=== PATIENT | female | born 1960 | race Caucasian/White ===

== ENCOUNTER → 2019-04-22 13:27 | Outpatient (CLI) | payer OTHER, MEDICAID, SELFPAY ==
--- NOTE | 2019-04-22 13:30 | DI.RAD.S_ITS ---
PROCEDURE: XR KNEE RT 1TO2V INDICATIONS: R knee joint laxity TECHNIQUE: 2 views of the knee were acquired. COMPARISON: None. FINDINGS: Bones: No fractures or dislocations. No suspicious bony lesions. No significant degenerative changes are appreciated. The bone mineralization appears decreased. Soft tissues: No joint effusion. No suspicious soft tissue calcifications. IMPRESSION: No acute osseous abnormalities of the right knee. Dictated by: Nghia Brown M.D. on 04/22/2019 at 14:10 Approved by: Nghia Brown M.D. on 04/22/2019 at 14:10
== END ==
PROVIDERS: PCP Family Medicine; Visit Provider Family Medicine
DX: M23.8X1 Other internal derangements of right knee (principal); G35 Multiple sclerosis; R53.1 Weakness
CPT/HCPCS: 73560

== ENCOUNTER → 2019-07-01 12:43 | Outpatient (CLI) | payer OTHER, MEDICAID, SELFPAY ==
[2019-07-01 13:22] LABS: Add Manual Diff / Slide Review NO; Basophils Absolute Auto 0 /uL (0-100); Basophils Percent Auto 0.8 % (0-2); Eosinophils Absolute Auto 100 /uL (0-450); Eosinophils Percent Auto 2.3 % (2-4); Hematocrit 41.4 % (36-46); Hemoglobin 14.2 g/dL (12.0-16.0); Lymphocytes Absolute Auto 900 /uL (1100-4500); Lymphocytes Percent Auto 18.8 % (25-40); Mean Corpuscular HGB Conc 34.2 % (30-36); Mean Corpuscular Hemoglobin 29.6 PG (26-34); Mean Corpuscular Volume 86.6 fL (80-100); Monocytes Absolute Auto 200 /uL (0-900); Monocytes Percent Auto 4.2 % (3-14); Neutrophils Absolute Auto 3700 /uL (1500-7000); Neutrophils Percent Auto 73.9 % (50-75); Platelet Count 278 X10^3/uL (150-400); Red Blood Cell Count 4.79 X10^6/uL (4.0-5.2)
[2019-07-01 13:48] LABS: Alanine Aminotransferase 25 IU/L (<35); Albumin 4.5 g/dL (3.5-5.0); Albumin Globulin Ratio 1.4 (1.0-2.8); Alkaline Phosphatase 64 U/L (38-126); Aspartate Aminotransferase 26 IU/L (14-36); Bilirubin Total 0.5 mg/dL (0.2-1.3); Blood Urea Nitrogen 9 mg/dL (7-17); Calcium 10.1 mg/dL (8.4-10.2); Carbon Dioxide 29 mmol/L (22-32); Chloride 100 mmol/L (98-107); Cholesterol 236 mg/dL (140-199); Estimated Glomerular Filt Rate > 60.0 mL/min (>60); Globulin 3.3 g/dL (1.7-4.1); Glucose 89 mg/dL (80-110); HDL Cholesterol 48 mg/dL (40-60); HEMOLYSIS < 15 (0-50); LDL Cholesterol Calculated 164 mg/dL (<100); Potassium 4.1 mmol/L (3.4-5.1); Sodium 140 mmol/L (137-145); Total Protein 7.8 g/dL (6.3-8.2); Triglycerides 119 mg/dL (35-150)
[2019-07-01 14:19] LABS: Thyroid Stimulating Hormone 2.08 uIU/mL (0.47-4.68)
[2019-07-01 15:24] LABS: Vitamin D 25 Hydroxy (D3) 77.3 ng/mL (30.0-100.0)
== END ==
PROVIDERS: PCP Family Medicine; Visit Provider Family Medicine
DX: G35 Multiple sclerosis (principal); Z13.220 Encounter for screening for lipoid disorders; Z13.29 Encounter for screening for other suspected endocrine disorder
CPT/HCPCS: 36415; 80053; 80061; 82306; 84443; 85025

== ENCOUNTER 2025-03-15 12:39 | Inpatient (IN) | payer MEDICARE, MEDICAID, SELFPAY ==
[2025-03-15] VITALS (15 sets, daily range): BP systolic 111–153; BP diastolic 57–76; PULSE 101–117; RESP 14–22; TEMP 36.6–37.1; O2SAT 95–100; BMI 20.7
--- NOTE | 2025-03-15 14:12 | DI.RAD.S_ITS ---
PROCEDURE: XR CHEST 1V INDICATIONS: suspected sepsis TECHNIQUE: One view of the chest was acquired. COMPARISON: None. FINDINGS: Surgical changes and devices: None. Lungs and pleura: Lungs are clear. No pleural effusions or pneumothorax. Mediastinum: Mediastinal contours appear normal. Heart size is normal. Bones and chest wall: No suspicious bony lesions. Overlying soft tissues appear unremarkable. IMPRESSION: No acute pulmonary process. Dictated by: Rajwinder Quiroz M.D. on 03/15/2025 at 15:41 Approved by: Rajwinder Quiroz M.D. on 03/15/2025 at 15:41
--- NOTE | 2025-03-15 14:20 | EKG_ITS ---
[place] [id number] [place] [id number] Test Date: 2025-03-15 Pat Name: Palmira Burch Department: [facility] Room: Gender: Female Manager Behavior: : 1960 Requested By: Order Number: [id number] Reading MD: Dontrell Gallardo Measurements Intervals [place] Rate: 110 P: 80 MO: 156 QRS: 5 QRSD: 76 T: 68 QT: 338 QTc: 457 Interpretive Statements Sinus tachycardia with premature supraventricular complexes Low voltage QRS Cannot rule out Anterior infarct , age undetermined Electronically Signed On 03-15-2025 17:12:23 PDT by Dontrell Gallardo
[2025-03-15 14:26] LABS: Bilirubin Urine UA 1+ (NEGATIVE); Color Urine UA YELLOW; Glucose Urine UA NEGATIVE (Negative); Ketones Urine UA TRACE (NEGATIVE); Leukocyte Esterase Urine UA 3+ (NEGATIVE); Nitrite Urine UA NEGATIVE (Negative); Occult Blood Urine UA 2+ (Negative); Protein Urine UA 2+ (Negative); Specific Gravity Urine UA 1.015 (1.000-1.035); Urobilinogen Urine UA 1.0 E.U./dL (0.2); pH Urine UA 8.0 (4.5-8.0)
[2025-03-15 14:27] LABS: Appearance Urine UA Cloudy
[2025-03-15 14:33] LABS: Culture Indicated Urine Specimen Cultured
[2025-03-15] MEDS: SODIUM CHLORIDE 0.9% 1,000 ML 1000 ML IV ×2 (14:36→15:49)
[2025-03-15 14:37] LABS: Ictotest Urine Negative (Negative)
[2025-03-15 14:42] LABS: Add Manual Diff / Slide Review NO; Hematocrit 28.0 % (36-46); Hemoglobin 9.2 g/dL (12.0-16.0); Lymphocytes Absolute Auto 700 /uL (1100-4500); Mean Corpuscular HGB Conc 33.0 % (30-36); Mean Corpuscular Hemoglobin 28.0 PG (26-34); Mean Corpuscular Volume 84.9 fL (80-100); Platelet Count 554 X10^3/uL (150-400)
[2025-03-15 14:49] LABS: INR 1.3 (0.9-1.3); Prothrombin Time 14.2 SECONDS (9.4-12.5)
[2025-03-15 14:50] LABS: Lactate (Lactic Acid) 1.3 mmol/L (0.7-2.1)
[2025-03-15 14:52] LABS: PTT Partial Thromboplastin Tim 28 SECONDS (25.1-36.5)
[2025-03-15 15:11] LABS: Alanine Aminotransferase 48 IU/L (<35); Albumin 3.1 g/dL (3.5-5.0); Albumin Globulin Ratio 0.8 (1.0-2.8); Alkaline Phosphatase 123 U/L (38-126); Blood Urea Nitrogen 22 mg/dL (7-17); Calcium 9.1 mg/dL (8.4-10.2); Carbon Dioxide 20 mmol/L (22-32); Chloride 97 mmol/L (98-107); Estimated Glomerular Filt Rate > 60 mL/min (>60); Globulin 4.0 g/dL (1.7-4.1); Glucose 109 mg/dL (70-99); HEMOLYSIS < 15 (0-50); Lipase 131 U/L (23-300); Potassium 4.8 mmol/L (3.4-5.1); Sodium 129 mmol/L (137-145); Total Protein 7.1 g/dL (6.3-8.2)
[2025-03-15 15:27] LABS: Procalcitonin 0.213 ng/mL (<0.5)
--- NOTE | 2025-03-15 16:33 | ED.ABDPAIN ---
HPI - Abdominal Pain General Chief Complaint: Urogenital-Female Stated Complaint: feels sick, sludgy urine Time Seen by Provider: 03/15/25 12:42 Source: patient Mode of arrival: EMS History of Present Illness HPI narrative: Patient 64-year-old female history of MS not followed by Neurology not on any medication is fully disabled lives alone presenting today with increasing weakness. She is here with good friend and caregiver at bedside. They report they had upper respiratory viral-like illness about 3 weeks ago. At that time she lost strength in the right side of her body arm and leg. They proceeded to get more devices at home including lift chair transfer chair. Started noticing foul-smelling urine yesterday and much worse today. No pain. She has a health inspector with social work as an outpatient working on getting 24 hour care but not yet established. Weakness on right side is quite profound she used to be able to walk by a walker 3 weeks ago but not able to do so all now. Related Data Home Medications ?Medication ?Instructions ?Recorded ?Confirmed ascorbic acid (vitamin C) 500 mg mg PO 11/29/18 12/13/24 capsule ginkgo biloba 40 mg tablet 40 mg PO DAILY 11/29/18 12/13/24 vitamin B complex (B 1 tab PO DAILY 11/29/18 12/13/24 Complex-Vitamin B12 tablet) mecobalamin (vitamin B12) 1,000 1,000 mcg sublingual DAILY 12/13/24 12/13/24 mcg disintegrating tablet,sublingual Previous Rx's ?Medication ?Instructions ?Recorded Incontinence Supplies #1 ea 02/17/22 transfer disk #1 ea 05/14/22 transfer disk #1 ea 05/26/22 disabled parking #1 ea 12/29/22 Shower chair #1 ea 03/24/23 NANCY Donahue Sit to Stand #1 ea 12/19/24 patient transfer Aid Allergies Allergy/AdvReac Type Severity Reaction Status Date / Time No Known Allergies Allergy Uncoded 03/15/25 12:52 Patient History Medical History Dyslipidemia Social History Smoking Status: Unknown if ever smoked alcohol intake: never Smoking Status: Unknown if ever smoked Exam Initial Vital Signs Initial Vital Signs: Vital Signs Temperature 98.7 F 03/15/25 12:45 Pulse Rate 117 H 03/15/25 12:45 Respiratory Rate 14 03/15/25 12:45 Blood Pressure 124/63 03/15/25 12:45 Pulse Oximetry 97 03/15/25 12:45 Oxygen Delivery Method Room Air 03/15/25 12:45 GENERAL: Alert pleasant 64-year-old and in no acute distress. HEENT: Head atraumatic,EOMI, pupils reactive, face symmetric, dry mucous membranes CARDIOVASCULAR: Regular rate and rhythm without murmurs, rubs or gallops. RESPIRATORY: Breath sounds equal bilaterally, no wheezes rales or rhonchi. ABDOMEN: Soft, nontender. Normoactive bowel sounds all 4 quadrants. No guarding or rebound. EXTREMITIES: Normal range of motion, no clubbing or edema. Neurovascularly intact NEUROLOGICAL: Alert and oriented x4. No facial droop significant weakness on right arm unable to lift against gravity able to move toes on the left side but also pretty profoundly weak SKIN: Warm, dry, no laceration, no petechiae, no rashes or lesions. Scores NIH Stroke Scale Level of Conciousness: Alert, keenly responsive Ask month/age: Answers both questions correctly. Open/close eyes, close hand: Performs both tasks correctly Best gaze horizontal: Normal Visual lucio: No visual loss Facial palsy: Normal symetrical movement Left arm drift: Some effort against gravity, cannot maintain, drifts down to bed Right arm drift: No effort against gravity Left leg drift: Some effort against gravity, cannot maintain, drifts down to bed Right leg drift: No movement Limb ataxia: Absent Sensory on face/arms/legs: Normal, no sensory loss Best language: No aphasia, normal Dysarthria: Normal Extinction or inattention: No abnormality Total NIH Stroke scale score: 11 Course Orders Ordered: ED Orders 03/15/25 12:30 Comprehensive Metabolic Panel Stat Lipase Stat PTT Partial Thromboplastin Vikash Stat Procalcitonin Stat Prothrombin Time INR Stat 03/15/25 14:12 XR chest 1V Stat EKG-12 Lead Stat RT Consult Eval and Treat NOW 03/15/25 14:17 Ictotest Urine Stat Urinalysis and Microscopic Stat Urine Culture Stat 03/15/25 14:25 Blood Culture Stat Complete Blood Count AUTO DIFF Stat Lactate (Lactic Acid) Stat 03/15/25 16:56 CT head/brain wo con Stat 03/15/25 17:01 CT angio head and neck Stat Ondansetron HCl (Ondansetron 4 Mg/2 Ml Inj) 4 mg IV NOW PRN PRN Reason: Nausea And Vomiting Ondansetron HCl (Ondansetron 4 Mg Odt) 4 mg PO NOW PRN PRN Reason: Nausea And Vomiting Discontinued Medications Sodium Chloride (Normal Saline 0.9%) 1,000 mls @ 1,000 mls/hr IV BOLUS ONE Stop: 03/15/25 15:11 Last Infusion: 03/15/25 15:38 Dose: Infused Documented By: Admin: 03/15/25 14:36 Dose: 1,000 mls/hr Documented By: CHARANJIT Sodium Chloride (Normal Saline 0.9%) 1,000 mls @ 1,000 mls/hr IV BOLUS ONE Stop: 03/15/25 15:58 Last Infusion: 03/15/25 17:15 Dose: Infused Documented By: Admin: 03/15/25 15:49 Dose: 1,000 mls/hr Documented By: CHARANJIT Ceftriaxone Sodium 1,000 mg/ (Sodium Chloride) 100 mls @ 200 mls/hr IV NOW ONE Stop: 03/15/25 15:00 Last Infusion: 03/15/25 15:49 Dose: Infused Documented By: Admin: 03/15/25 15:11 Dose: 200 mls/hr Documented By: CHARANJIT Vital Signs Vital signs: Vital Signs - 8 hr 03/15/25 12:45 03/15/25 13:22 03/15/25 13:23 Temperature 98.7 F Pulse Rate 117 H 114 H Respiratory Rate 14 Blood Pressure 124/63 119/59 L Pulse Oximetry 97 98 Oxygen Delivery Method Room Air 03/15/25 13:23 03/15/25 13:30 03/15/25 13:30 Temperature Pulse Rate 114 H 111 H Respiratory Rate 22 Blood Pressure 120/57 L Pulse Oximetry 98 97 Oxygen Delivery Method 03/15/25 14:00 03/15/25 14:00 03/15/25 14:30 Temperature Pulse Rate 112 H 109 H Respiratory Rate Blood Pressure 127/76 Pulse Oximetry 98 97 Oxygen Delivery Method 03/15/25 14:31 03/15/25 14:31 03/15/25 15:00 Temperature Pulse Rate 112 H Respiratory Rate 20 Blood Pressure 153/65 H 133/60 Pulse Oximetry 96 Oxygen Delivery Method 03/15/25 15:00 03/15/25 15:30 03/15/25 15:30 Temperature Pulse Rate 101 H 101 H Respiratory Rate Blood Pressure 123/60 Pulse Oximetry 100 100 Oxygen Delivery Method Room Air 03/15/25 16:00 03/15/25 16:00 03/15/25 16:30 Temperature Pulse Rate 104 H Respiratory Rate Blood Pressure 130/60 120/59 L Pulse Oximetry 98 Oxygen Delivery Method 03/15/25 16:30 03/15/25 17:00 03/15/25 17:00 Temperature Pulse Rate 103 H 104 H Respiratory Rate 20 18 Blood Pressure 111/62 Pulse Oximetry 95 98 Oxygen Delivery Method Room Air MDM - Abdominal Pain Lab Data 03/15/25 14:25 03/15/25 12:30 Labs: Lab Results 03/15/25 03/15/25 03/15/25 Range/Units 12:30 14:17 14:25 WBC 13.5 H (4.5-11.0) X10^3/uL RBC 3.30 L (4.0-5.2) X10^6/uL Hgb 9.2 L (12.0-16.0) g/dL Hct 28.0 L (36-46) % MCV 84.9 (80-100) fL MCH 28.0 (26-34) PG MCHC 33.0 (30-36) % RDW 14.1 (11.6-14.8) % Plt Count 554 H (150-400) X10^3/uL Neut % (Auto) 88.5 H (50-75) % Lymph % (Auto) 4.9 L (25-40) % [place] % (Auto) 6.2 (3-14) % Eos % (Auto) 0.2 L (2-4) % Baso % (Auto) 0.2 (0-2) % Neut # (Auto) 68462 H (7392-1715) /uL Lymph # (Auto) 700 L (2754-8405) /uL [place] # (Auto) 800 (0-900) /uL Eos # (Auto) 0 (0-450) /uL Baso # (Auto) 0 (0-100) /uL PT 14.2 H (9.4-12.5) SECONDS INR 1.3 (0.9-1.3) APTT 28 (25.1-36.5) SECONDS Sodium 129 L (137-145) mmol/L Potassium 4.8 (3.4-5.1) mmol/L Chloride 97 L (98-107) mmol/L Carbon Dioxide 20 L (22-32) mmol/L BUN 22 H (7-17) mg/dL Creatinine 0.45 L (0.52-1.04) mg/dL Estimated GFR > 60 (>60) mL/min BUN/Creatinine Ratio 48.9 H (6-22) Glucose 109 H (70-99) mg/dL Lactate 1.3 (0.7-2.1) mmol/L Calcium 9.1 (8.4-10.2) mg/dL Total Bilirubin 1.0 (0.2-1.3) mg/dL AST 59 H (14-36) IU/L ALT 48 H (<35) IU/L Alkaline Phosphatase 123 (38-126) U/L Total Protein 7.1 (6.3-8.2) g/dL Albumin 3.1 L (3.5-5.0) g/dL Globulin 4.0 (1.7-4.1) g/dL Albumin/Globulin Ratio 0.8 L (1.0-2.8) Lipase 131 (23-300) U/L Procalcitonin 0.213 (<0.5) ng/mL Urine Color Yellow Urine Appearance Cloudy Urine pH 8.0 (4.5-8.0) Ur Specific [place] 1.015 (1.000-1.035) Urine Protein 2+ H (Negative) Urine Glucose (UA) Negative (Negative) g/dL Urine Ketones Trace H (NEGATIVE) Urine Occult Blood 2+ H (Negative) Urine Nitrate Negative (Negative) Urine Bilirubin 1+ H (NEGATIVE) Ur Bilirubin Confirm Negative (Negative) Urine Urobilinogen 1.0 (0.2) E.U./dL Ur Leukocyte Esterase 3+ H (NEGATIVE) Urine RBC 1-5/hpf (0-5/HPF) Urine WBC 10-30/hpf H (0-5/HPF) Ur Squamous Epith Cells 1-5 /hpf (0-5/HPF) Urine Bacteria Many (>30) H (None) Ur Culture Indicated? Specimen cultured Vol Urine Centrifuged 10ml (spun) Imaging Data Chest x-ray: Radiologist's Impression: PROCEDURE: XR CHEST 1V INDICATIONS: suspected sepsis TECHNIQUE: One view of the chest was acquired. COMPARISON: None. FINDINGS: Surgical changes and devices: None. Lungs and pleura: Lungs are clear. No pleural effusions or pneumothorax. Mediastinum: Mediastinal contours appear normal. Heart size is normal. Bones and chest wall: No suspicious bony lesions. Overlying soft tissues appear unremarkable. IMPRESSION: No acute pulmonary process. Dictated by: Rajwinder Quiroz M.D. on 03/15/2025 at 15:41 CTA - brain/neck: Radiologist's Impression: PROCEDURE: CT ANGIO HEAD AND NECK INDICATIONS: right sided weakness x 3 weeks with MS TECHNIQUE: After the administration of intravenous contrast, 1 mm thick sections acquired from the aortic arch through the [employer] of [place]. 3-dimensional vdivfhq-fiasfxgrm-svbkwejqtm (MIP) and/or volume rendering reformats were acquired of the central intracranial vasculature and neck separately. For radiation dose reduction, the following was used: automated exposure control, adjustment of mA and/or kV according to patient size. COMPARISON: [facility], CT, CT HEAD/BRAIN WO CON, 03/15/2025, 17:07. FINDINGS: Image quality: Diagnostic. BRAIN: CSF spaces: Ventricles are normal in size and shape. Basal cisterns are patent. No extra-axial fluid collections. Brain: No midline shift. No intracranial masses. No suspicious enhancement. Wang-white matter interface appears intact. Skull and face: Calvarium and facial bones appear intact, without suspicious lesions. Orbits appear normal. Sinuses: Sinuses and mastoids are clear. HEAD CT ANGIOGRAPHY: Anterior circulation: There are atherosclerotic calcifications of the intracranial segments of the internal carotid arteries. Intracranial internal carotid arteries appear patent without high-grade stenosis. There is flow/opacification within the paired anterior cerebral arteries. There is opacification within the middle cerebral arteries. The anterior communicating artery is seen. No aneurysms are seen. No occlusion. Posterior circulation: Visualized portions of the vertebral arteries are patent and join to form a normal appearing basilar artery. No evidence for high-grade stenosis. No occlusions. There is opacification of the posterior cerebral arteries. No aneurysms are seen. NECK CT ANGIOGRAPHY: Carotid system: The great vessels demonstrate a conventional anatomy as they arise from the aortic arch. The origins of the common carotid arteries appear patent. The common carotid arteries appear patent throughout their visualized courses without high grade stenosis. The bifurcation regions are both patent without high grade stenosis. The internal carotid arteries demonstrate normal calibers and courses. Posterior circulation: The origins of the vertebral arteries both appear patent without hemodynamically significant stenosis. The more superior extracranial portions of both vertebral arteries also demonstrate normal courses and calibers. They join to form a normal appearing basilar artery. Soft tissues: Visualized neck soft tissues demonstrate no suspicious abnormalities. No adenopathy. Lung apices are clear. No apical pneumothorax. Bones: No suspicious bony lesions. Visualized cervical spine appears normally aligned. No acute compression fractures of the vertebral bodies. Multilevel cervical spondylosis. IMPRESSION: No significant intracranial arterial abnormality is seen. No significant abnormality is seen within the arteries of the neck. If there is persistent or high clinical suspicion for acute cerebrovascular ischemia/stroke, more sensitive evaluation with brain MRI can be considered. Any quantitative measurements of stenosis were performed using NASCET criteria. Dictated by: Bill York M.D. on 03/15/2025 at 18:02 ECG Data Attestation: I personally reviewed and interpreted this ECG as follows: Prior ECG tracings: not available for review Interpretation: Sinus rhythm rate 110 OK interval 156 QRS 76 QTC 457 artifact noted no significant ischemia appreciated MDM Narrative Medical decision making narrative: MDM CC: Weakness Complicating co-morbidities: MS not treated Data collected from: Patient caregiver at bedside Medical records reviewed: PCP note from December talking about increasing weakness need for more help and devices at home. Was not seen prior December 2022 Differential considered: Sepsis, MS flare, CVA Exam documented above, pertinent findings include: Alert very pleasant 64-year-old female has profound weakness greater on right than left but left is also quite weak. Lower extremity edema Lab Test results independently reviewed as above. Pertinent findings: CBC mild leukocytosis 13.5 anemia at 9.2 hematocrit 28 platelets 554 CMP mild hyponatremia sodium is 129 bicarb 20 BUN 22 creatinine 0.45 glucose 109 Lactate 1.3, procalcitonin 0.213 Blood cultures pending Independently reviewed EKG as above Sinus rhythm no ischemia Imaging studies independently reviewed: Chest x-ray no acute cardiopulmonary process Head CT no intracranial process, chronic disease CT angio no large vessel occlusion Consultations: Sami agrees to observation Treatments: 1 L IV fluids Rocephin Re-evaluations: Heart rate has improved Discussion: Patient 64-year-old female history of MS currently not treated presenting today with increasing weakness over the last 3 weeks and foul-smelling urine today. She is found to have leukocytosis with bacteria in her urine. She has had significant decline over the last 3 weeks in her mobility. Working with case work to get full-time care but not available yet. Trying to get more mobility devices holding as well. At this time I suspect that she does have a UTI with leukocytosis bacteria in her urine foul-smelling 'sludge urine with increasing weakness. No evidence of sepsis normal lactate blood cultures pending. She was tachycardic but heart rate improved with fluids. Discharge Plan Departure Patient Disposition: Admitted as Observation Clinical Impression: Acute UTI, Multiple sclerosis Admit Date/Time: 03/15/25 18:11 Admit Provider: Dontrell Gallardo
--- NOTE | 2025-03-15 16:56 | DI.CT.S_ITS ---
PROCEDURE: CT HEAD/BRAIN WO CON INDICATIONS: right sided weakness x 3 weeks MS TECHNIQUE: Noncontrast 4.5 mm thick angled axial sections acquired from the foramen magnum to the vertex, with coronal and sagittal reformats. For radiation dose reduction, the following was used: automated exposure control, adjustment of mA and/or kV according to patient size. COMPARISON: [facility], CT, HEAD WITHOUT CONTRAST, 09/30/2016, 11:31. FINDINGS: Image quality: Diagnostic. CSF spaces: Basal cisterns are patent. No extra-axial fluid collections. The ventricles are symmetric in size and shape. Brain: No intracranial bleeds or mass effect. There is cerebral volume loss, with resultant ventricular and sulcal prominence. There are periventricular and deep white matter chronic small vessel ischemic changes. There is intracranial internal carotid artery atherosclerosis. Skull and face: Calvarium and visualized facial bones appear intact, without suspicious lesions. Sinuses: Visualized sinuses and mastoids are clear. IMPRESSION: 1. CT head without acute intracranial abnormalities or acute calvarial fractures. 2. Age-related senescent changes and sequela of chronic small vessel ischemic disease. If there is persistent or high clinical suspicion for acute cerebrovascular ischemia/stroke, more sensitive evaluation with brain MRI can be considered. Dictated by: Bill York M.D. on 03/15/2025 at 17:32 Approved by: Bill York M.D. on 03/15/2025 at 17:34
--- NOTE | 2025-03-15 17:01 | DI.CT.S_ITS ---
PROCEDURE: CT ANGIO HEAD AND NECK INDICATIONS: right sided weakness x 3 weeks with MS TECHNIQUE: After the administration of intravenous contrast, 1 mm thick sections acquired from the aortic arch through the [place] of [place]. 3-dimensional ihtrjhb-ttsgegubc-hmzuhftdfu (MIP) and/or volume rendering reformats were acquired of the central intracranial vasculature and neck separately. For radiation dose reduction, the following was used: automated exposure control, adjustment of mA and/or kV according to patient size. COMPARISON: [facility], CT, CT HEAD/BRAIN WO CON, 03/15/2025, 17:07. FINDINGS: Image quality: Diagnostic. BRAIN: CSF spaces: Ventricles are normal in size and shape. Basal cisterns are patent. No extra-axial fluid collections. Brain: No midline shift. No intracranial masses. No suspicious enhancement. Wang-white matter interface appears intact. Skull and face: Calvarium and facial bones appear intact, without suspicious lesions. Orbits appear normal. Sinuses: Sinuses and mastoids are clear. HEAD CT ANGIOGRAPHY: Anterior circulation: There are atherosclerotic calcifications of the intracranial segments of the internal carotid arteries. Intracranial internal carotid arteries appear patent without high-grade stenosis. There is flow/opacification within the paired anterior cerebral arteries. There is opacification within the middle cerebral arteries. The anterior communicating artery is seen. No aneurysms are seen. No occlusion. Posterior circulation: Visualized portions of the vertebral arteries are patent and join to form a normal appearing basilar artery. No evidence for high-grade stenosis. No occlusions. There is opacification of the posterior cerebral arteries. No aneurysms are seen. NECK CT ANGIOGRAPHY: Carotid system: The great vessels demonstrate a conventional anatomy as they arise from the aortic arch. The origins of the common carotid arteries appear patent. The common carotid arteries appear patent throughout their visualized courses without high grade stenosis. The bifurcation regions are both patent without high grade stenosis. The internal carotid arteries demonstrate normal calibers and courses. Posterior circulation: The origins of the vertebral arteries both appear patent without hemodynamically significant stenosis. The more superior extracranial portions of both vertebral arteries also demonstrate normal courses and calibers. They join to form a normal appearing basilar artery. Soft tissues: Visualized neck soft tissues demonstrate no suspicious abnormalities. No adenopathy. Lung apices are clear. No apical pneumothorax. Bones: No suspicious bony lesions. Visualized cervical spine appears normally aligned. No acute compression fractures of the vertebral bodies. Multilevel cervical spondylosis. IMPRESSION: No significant intracranial arterial abnormality is seen. No significant abnormality is seen within the arteries of the neck. If there is persistent or high clinical suspicion for acute cerebrovascular ischemia/stroke, more sensitive evaluation with brain MRI can be considered. Any quantitative measurements of stenosis were performed using NASCET criteria. Dictated by: Bill York M.D. on 03/15/2025 at 18:02 Approved by: Bill York M.D. on 03/15/2025 at 18:07
--- NOTE | 2025-03-15 18:48 | CM.DANOTE ---
DCP Assessment Note: Pt is a 64yo female, resident of [place], is admitted for Acute UTI, Hx of MS. Pt lives in a house alone, has a caregiver 7 days a week for approximately 12 hours a day. Pt's Primary Care Provider is TL Menjivar and insurance is [facility] Medicare and Medicaid. Reviewed chart and discussed with multidisciplinary team pt's medical status and initial discharge needs. DCP met w/patient at bedside; introduced self and role. Present in the room is pt's caregiver, Loren. Patient was found in bed, alert and oriented, cooperative with assessment. Pt confirmed living situation and good support in caregiver. Pt expressed preference in discharge home when cleared. Pt has no history of SNF Rehab or home health in the area. Per pt caregiver, Loren Clara, ph# [phone], it is reported pt has recently become totally dependent with ADLs due to new left sided weakness. She has been disabled since 2016. They recently obtained a rossy lift this week Wednesday. Patient has been working with [facility] to obtain 28/12 care. Boss Miner: June Moreno (ph# [phone], email: [email or web address]). Plan: Acute care admission, anticipating discharge home with caregiver when medically cleared, will need BLS transport due to total care. CM team will follow closely for coordination of discharge plans. KARSTEN Judd Discharge Planning/Care Management CM Discharge Assessment Start: 03/15/25 18:45 Freq: Status: Active Protocol: Document 03/15/25 18:46 MW (Rec: 03/15/25 18:48 MW [id number]) Discharge Planning Assessment Assigned Discharge SEGUN Brown Civil Lawyer Provider TL Menjivar Insurance Medicaid,[facility] DPOA/Assigned Loren Elizabeth, Caregiver Designee Name Contact Information [phone] Advance Directives? Yes History Provided By Patient,Friend,Medical Record Has Patient been No admitted in last 30 days? Prior Living House Arrangements Household Members none Type of Relies on Others transporation used prior to admit Independent with ADL No 's Is patient alert and Yes oriented? Needs Assistance Bathing,Grooming,Meal Prep,Toileting,Managing With Medications,Home Chores / Shopping Caregiver for No Another Discharge Plan Home Transportation BLS due to total care Arrangement Review Status In Process Please Provide Date 03/15/25 Initial DC Assessment Was Performed Next Review Type Continued Stay Review
--- NOTE | 2025-03-15 19:00 | PM.HP.1 ---
History of Present Illness History of Present Illness Date Patient Seen: 03/15/25 Time Patient Seen: 19:00 Chief complaint: feels sick, sludgy urine Narrative: Patient was a 64-year-old female with MS. She lives at home with caregivers during the day. She has been ill for about 3 weeks with what she saw thought was a virus. She was had foul-smelling urine for the past several days and progressive weakness over 3 weeks. She was usually able to be assisted in transferring in during the day and he was typically unattended overnight. She has caregivers for over 12 hours a day. She was had no fevers, or chills. She does have myalgias and generalized weakness. She denies a headache. Her difficulty speaking. There was no specific focal weakness that she can detect. A CT scan in the ED was unremarkable. However her abdomen was distended and a in and out catheter yielded over 1000 mL of urine which was foul smelling and purulent. She was no history of known urine retention but it sounds as though this may have been progressive over the past several weeks. She also denies urinary tract infection. [facility] Medical History Dyslipidemia Social History household members: none Smoking Status: Unknown if ever smoked alcohol intake: never Meds Home Medications and Allergies Home Medications ?Medication ?Instructions ?Recorded ?Confirmed ?Type ascorbic acid (vitamin C) 500 mg mg PO 11/29/18 12/13/24 History capsule ginkgo biloba 40 mg tablet 40 mg PO DAILY 11/29/18 12/13/24 History vitamin B complex (B 1 tab PO DAILY 11/29/18 12/13/24 History Complex-Vitamin B12 tablet) Incontinence Supplies #1 ea 02/17/22 12/29/22 Rx transfer disk #1 ea 05/14/22 Rx transfer disk #1 ea 05/26/22 Rx disabled parking #1 ea 12/29/22 12/29/22 Rx Shower chair #1 ea 03/24/23 Rx mecobalamin (vitamin B12) 1,000 1,000 mcg sublingual DAILY 12/13/24 12/13/24 History mcg disintegrating tablet,sublingual NANCY Donahue Sit to Stand #1 ea 12/19/24 Rx patient transfer Aid Allergies Allergy/AdvReac Type Severity Reaction Status Date / Time No Known Allergies Allergy Uncoded 03/15/25 12:52 Review of Systems Review of Systems Narrative: All else reviewed and otherwise unremarkable except as noted in the history and physical. Exam Vital Signs (past 8 hours): - 03/15/25 12:45 03/15/25 13:22 03/15/25 13:23 Temperature 98.7 F Pulse Rate 117 H 114 H Respiratory Rate 14 Blood Pressure 124/63 119/59 L Pulse Oximetry 97 98 Oxygen Delivery Method Room Air 03/15/25 13:23 03/15/25 13:30 03/15/25 13:30 Temperature Pulse Rate 114 H 111 H Respiratory Rate 22 Blood Pressure 120/57 L Pulse Oximetry 98 97 Oxygen Delivery Method 03/15/25 14:00 03/15/25 14:00 03/15/25 14:30 Temperature Pulse Rate 112 H 109 H Respiratory Rate Blood Pressure 127/76 Pulse Oximetry 98 97 Oxygen Delivery Method 03/15/25 14:31 03/15/25 14:31 03/15/25 15:00 Temperature Pulse Rate 112 H Respiratory Rate 20 Blood Pressure 153/65 H 133/60 Pulse Oximetry 96 Oxygen Delivery Method 03/15/25 15:00 03/15/25 15:30 03/15/25 15:30 Temperature Pulse Rate 101 H 101 H Respiratory Rate Blood Pressure 123/60 Pulse Oximetry 100 100 Oxygen Delivery Method Room Air 03/15/25 16:00 03/15/25 16:00 03/15/25 16:30 Temperature Pulse Rate 104 H Respiratory Rate Blood Pressure 130/60 120/59 L Pulse Oximetry 98 Oxygen Delivery Method 03/15/25 16:30 03/15/25 17:00 03/15/25 17:00 Temperature Pulse Rate 103 H 104 H Respiratory Rate 20 18 Blood Pressure 111/62 Pulse Oximetry 95 98 Oxygen Delivery Method Room Air 03/15/25 18:35 03/15/25 18:45 Temperature 98.8 F 97.9 F Pulse Rate 109 H Respiratory Rate 18 Blood Pressure 134/65 Pulse Oximetry 99 Oxygen Delivery Method Oxygen Delivery Method Room Air Narrative Exam Narrative: NAD, alert and oriented, fluent speech, calm. Normocephalic skull, EOMI, anicteric sclera, symmetric pupils. Oropharynx unremarkable, no droop. Neck supple, midline trachea, no adenopathy. Lungs clear, normal rate and effort. Heart regular, no murmur gallop or rub. Abdomen is soft, non distended and non tender. Extremities are free of edema. Skin is free of rash or lesions. Joints are not swollen or deformed. Judgment appears to be normal. Some atrophy of extremities. Objective Imaging Multiple studies:: Radiologist's impression: Head and neck CTA: No significant intracranial arterial abnormality is seen. No significant abnormality is seen within the arteries of the neck. If there is persistent or high clinical suspicion for acute cerebrovascular ischemia/stroke, more sensitive evaluation with brain MRI can be considered. Head CT: 1. CT head without acute intracranial abnormalities or acute calvarial fractures. 2. Age-related senescent changes and sequela of chronic small vessel ischemic disease. If there is persistent or high clinical suspicion for acute cerebrovascular ischemia/stroke, more sensitive evaluation with brain MRI can be considered. Chest x-ray: No acute pulmonary process. Labs 03/15/25 14:25 03/15/25 12:30 Labs: Laboratory Results - last 24 hr 03/15/25 03/15/25 03/15/25 12:30 14:17 14:25 WBC 13.5 H RBC 3.30 L Hgb 9.2 L Hct 28.0 L MCV 84.9 MCH 28.0 MCHC 33.0 RDW 14.1 Plt Count 554 H Neut % (Auto) 88.5 H Lymph % (Auto) 4.9 L [place] % (Auto) 6.2 Eos % (Auto) 0.2 L Baso % (Auto) 0.2 Neut # (Auto) 44123 H Lymph # (Auto) 700 L [place] # (Auto) 800 Eos # (Auto) 0 Baso # (Auto) 0 PT 14.2 H INR 1.3 APTT 28 Sodium 129 L Potassium 4.8 Chloride 97 L Carbon Dioxide 20 L BUN 22 H Creatinine 0.45 L Estimated GFR > 60 BUN/Creatinine Ratio 48.9 H Glucose 109 H Lactate 1.3 Calcium 9.1 Total Bilirubin 1.0 AST 59 H ALT 48 H Alkaline Phosphatase 123 Total Protein 7.1 Albumin 3.1 L Globulin 4.0 Albumin/Globulin Ratio 0.8 L Lipase 131 Procalcitonin 0.213 Urine Color Yellow Urine Appearance Cloudy Urine pH 8.0 Ur Specific [place] 1.015 Urine Protein 2+ H Urine Glucose (UA) Negative Urine Ketones Trace H Urine Occult Blood 2+ H Urine Nitrate Negative Urine Bilirubin 1+ H Ur Bilirubin Confirm Negative Urine Urobilinogen 1.0 Ur Leukocyte Esterase 3+ H Urine RBC 1-5/hpf Urine WBC 10-30/hpf H Ur Squamous Epith Cells 1-5 /hpf Urine Bacteria Many (>30) H Ur Culture Indicated? Specimen cultured Vol Urine Centrifuged 10ml (spun) Assessment & Plan Assessment & Plan narrative: 1. Urinary tract infection, active. 2. Urine retention, active. 3. Hypovolemic hyponatremia, active. 4. MS, with recent worsening of symptoms secondary infection. PLAN: -IV fluids with saline, correct sodium. -IV antibiotics -follow cultures -in and out catheterization Q 8 hours for urine retention. She is DNR, confirmed with her tonight. Anticipate 2 midnights in the hospital, supports inpatient status. Time-Based Coding :: 35 min spent with patient and on the chart (including review of chart, obtaining history, exam, reviewing outside data, placing orders, documenting exam and treatment plan, and counseling patient) on 03/15. Quality MIPS - Admit I confirm the patient?s Advance Care Plan is present, Code status is documented, Surrogate decision maker is in patient?s record [If Yes, STOP here]: Yes MIPS - Meds 'Current medications' to include all prescriptions, [id number] products, herbals, cannabis/cannabidiol products, and vitamin/mineral/dietary (nutritional) supplements. I have utilized all available resources to obtain, update, or review the patient?s current medications. [If Yes, STOP here]: Yes
[2025-03-15] MEDS: SODIUM CHLORIDE 0.9% 1,000 ML 100 ML IV (19:48)
[2025-03-15] MEDS: HEPARIN 5,000 UNIT/ML VIAL 5000 UNIT SUBCUT (21:30)
[2025-03-16] MEDS: SODIUM CHLORIDE 0.9% 1,000 ML 100 ML IV (06:20)
--- NOTE | 2025-03-16 07:32 | PM.PN.1 ---
Subjective Subjective Interval history: Hospital course: 64-year-old female with MS who presents with 3 weeks of increased weakness, urinary retention, and urinary tract infection. Antibiotics started on March 15. She was at home alone in [place]. She has caregivers about 12 hours a day. S: She feels improved today with IV fluids. She was tolerating her IV antibiotics. Her urine remains low in volume and dark with sediment. O: NAD, alert and oriented. Fluent speech. Lungs are clear, normal rate and effort. Heart is regular, no murmur gallop or rub. Abdomen is soft, non distended. Extremities are free of edema. IMAGING: Head and neck CTA: No significant intracranial arterial abnormality is seen. No significant abnormality is seen within the arteries of the neck. If there is persistent or high clinical suspicion for acute cerebrovascular ischemia/stroke, more sensitive evaluation with brain MRI can be considered. Head CT: 1. CT head without acute intracranial abnormalities or acute calvarial fractures. 2. Age-related senescent changes and sequela of chronic small vessel ischemic disease. If there is persistent or high clinical suspicion for acute cerebrovascular ischemia/stroke, more sensitive evaluation with brain MRI can be considered. Chest x-ray: No acute pulmonary process. A/P: 1. Urinary tract infection, active. 2. Urine retention, active. 3. Hypovolemic hyponatremia, active. 4. MS, with recent worsening of symptoms secondary infection. PLAN: -IV fluids with saline, correct sodium. -IV antibiotics -follow cultures -Pang for urine retention. She is DNR, confirmed with her @ admission. Anticipate 2 midnights in the hospital, supports inpatient status. Exam Vital Signs (past 8 hours): Oxygen Delivery Method Room Air Oxygen Flow Rate 0 Objective Labs 03/15/25 14:25 03/15/25 12:30 Labs: Laboratory Results - last 24 hr 03/15/25 03/15/25 03/15/25 12:30 14:17 14:25 WBC 13.5 H RBC 3.30 L Hgb 9.2 L Hct 28.0 L MCV 84.9 MCH 28.0 MCHC 33.0 RDW 14.1 Plt Count 554 H Neut % (Auto) 88.5 H Lymph % (Auto) 4.9 L [place] % (Auto) 6.2 Eos % (Auto) 0.2 L Baso % (Auto) 0.2 Neut # (Auto) 71120 H Lymph # (Auto) 700 L [place] # (Auto) 800 Eos # (Auto) 0 Baso # (Auto) 0 PT 14.2 H INR 1.3 APTT 28 Sodium 129 L Potassium 4.8 Chloride 97 L Carbon Dioxide 20 L BUN 22 H Creatinine 0.45 L Estimated GFR > 60 BUN/Creatinine Ratio 48.9 H Glucose 109 H Lactate 1.3 Calcium 9.1 Total Bilirubin 1.0 AST 59 H ALT 48 H Alkaline Phosphatase 123 Total Protein 7.1 Albumin 3.1 L Globulin 4.0 Albumin/Globulin Ratio 0.8 L Lipase 131 Procalcitonin 0.213 Urine Color Yellow Urine Appearance Cloudy Urine pH 8.0 Ur Specific [place] 1.015 Urine Protein 2+ H Urine Glucose (UA) Negative Urine Ketones Trace H Urine Occult Blood 2+ H Urine Nitrate Negative Urine Bilirubin 1+ H Ur Bilirubin Confirm Negative Urine Urobilinogen 1.0 Ur Leukocyte Esterase 3+ H Urine RBC 1-5/hpf Urine WBC 10-30/hpf H Ur Squamous Epith Cells 1-5 /hpf Urine Bacteria Many (>30) H Ur Culture Indicated? Specimen cultured Vol Urine Centrifuged 10ml (spun) [facility] Medical History Dyslipidemia Social History household members: none Smoking Status: Never smoker alcohol intake: former Assessment & Plan Time-Based Coding :: [TOTAL MINUTES] spent with patient and on the chart (including review of chart, obtaining history, exam, reviewing outside data, placing orders, documenting exam and treatment plan, and counseling patient) on [DATE]. Quality VTE Deep Vein Thrombosis/Pulmonary Embolism Present on Admission: No
[2025-03-16 08:00] VITALS: BP 105/41; PULSE 107; RESP 20; TEMP 37.1; O2SAT 96
[2025-03-16] MEDS: HEPARIN 5,000 UNIT/ML VIAL 5000 UNIT SUBCUT ×2 (09:25→21:00)
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
[2025-03-16] MEDS: SODIUM CHLORIDE 0.9% 1,000 ML 150 ML IV (14:00)
[2025-03-16 19:00] VITALS: BP 106/58; PULSE 100; RESP 18; TEMP 37.1; O2SAT 98
[2025-03-17 05:53] LABS: Add Manual Diff / Slide Review YES; Hematocrit 21.1 % (36-46); Hemoglobin 7.2 g/dL (12.0-16.0); Mean Corpuscular HGB Conc 34.1 % (30-36); Mean Corpuscular Hemoglobin 28.8 PG (26-34); Mean Corpuscular Volume 84.6 fL (80-100); Platelet Count 517 X10^3/uL (150-400)
[2025-03-17 06:03] LABS: Alanine Aminotransferase 27 IU/L (<35); Albumin 2.0 g/dL (3.5-5.0); Albumin Globulin Ratio 0.6 (1.0-2.8); Alkaline Phosphatase 75 U/L (38-126); Blood Urea Nitrogen 11 mg/dL (7-17); Calcium 8.1 mg/dL (8.4-10.2); Carbon Dioxide 20 mmol/L (22-32); Chloride 111 mmol/L (98-107); Estimated Glomerular Filt Rate > 60 mL/min (>60); Globulin 3.1 g/dL (1.7-4.1); Glucose 119 mg/dL (70-99); HEMOLYSIS < 15 (0-50); Potassium 3.3 mmol/L (3.4-5.1); Sodium 134 mmol/L (137-145); Total Protein 5.1 g/dL (6.3-8.2)
[2025-03-17 06:07] LABS: Band Neutrophils Percent 4.0 % (3-7); Eosinophils Percent Manual 2.0 % (2-4); Lymphocytes Percent Manual 16.0 % (25-45); Monocytes Percent Manual 4.0 % (2-11); Neutrophils Absolute Manual 5772 /uL (3000-5900); RBC Morphology Norm; Segmented Neutrophils Percent 74.0 % (38-70); Total Cells Counted 100
[2025-03-17] MEDS: SODIUM CHLORIDE 0.9% 1,000 ML 150 ML IV ×2 (09:24→18:49)
[2025-03-17] MEDS: POTASSIUM CHLORIDE 20 MEQ TAB 40 MEQ PO (09:27)
[2025-03-17] MEDS: HEPARIN 5,000 UNIT/ML VIAL 5000 UNIT SUBCUT ×2 (09:27→20:53)
[2025-03-17 10:00] VITALS: BP 116/67; PULSE 101; RESP 16; TEMP 36.9; O2SAT 96
--- NOTE | 2025-03-17 11:12 | CM.DPNOTE ---
Addendum entered by SEGUN Arteaga 03/17/25 15:55: per hospitalist, pt interested in SNF rehab. INSULATION NOZZLEMAN met with pt and friend in room. no hx of SNF. INSULATION NOZZLEMAN reviewed SNF options. will review with friend/Caregiver for recs. will need PT/OT evals for auth. PASRR needed. confirms will need BLS transport. INSULATION NOZZLEMAN placed PT/OT evals for tomorrow. will start SNF process tomorrow P: eventual dc to SNF when cleared, BLS transport needed. will continue to follow closely for DCP coordination SEGUN Arteaga Original Note: DCP Note INSULATION NOZZLEMAN reviewed EMR per provider, urine and blood cultures still pending. may dc pending on if those result or not. Plan: Anticipating discharge home with school child care attendant assistance when medically cleared, will need BLS transport. CM Team will continue to follow for coordination of discharge plans. SEGUN Arteaga
--- NOTE | 2025-03-17 16:22 | PM.PN.1 ---
Subjective Subjective Interval history: 64-year-old female with underlying multiple sclerosis admitted with UTI and urinary retention concerning for possible neurogenic bladder. Patient lives home and has caregiving 7 days a week for approximately 12 hours a day. She notes she has been having more difficult time at home and is feeling quite weak. Her appetite has been quite poor. She expresses concern for returning home and wonders about whether she would benefit from a penitentiary facility rehab stay. She reports she is slowly feeling better but continues to have a poor overall food intake. She is trying to drink more but notes her urine continues to be dark and cloudy Exam Vital Signs (past 8 hours): - 03/17/25 10:00 Temperature 98.5 F Pulse Rate 101 H Respiratory Rate 16 Blood Pressure 116/67 Pulse Oximetry 96 Oxygen Flow Rate 0 Oxygen Delivery Method Room Air Oxygen Flow Rate 0 Narrative Exam Narrative: GEN: Middle-aged female, pleasant, chronically ill-appearing Alert and oriented x 3, NAD HEENT:NC, Face symmetric CHEST: Respiratory excursions symmetric, CTAB CV: RRR, no M/R/G ABD: Soft, NT/ND, BT present in all 4 quadrants, no organomegaly or masses EXTR: warm, well perfused, no C/C/E SKIN: warm and dry, no rash NEURO: Alert and oriented x 3 Objective Labs 03/17/25 04:49 03/17/25 04:49 Labs: Laboratory Results - last 24 hr 03/17/25 04:49 WBC 7.4 RBC 2.50 L Hgb 7.2 L Hct 21.1 L MCV 84.6 MCH 28.8 MCHC 34.1 RDW 14.1 Plt Count 517 H Neut % (Auto) Not Reportable Lymph % (Auto) Not Reportable [place] % (Auto) Not Reportable Eos % (Auto) Not Reportable Baso % (Auto) Not Reportable Lymph # (Auto) Not Reportable [place] # (Auto) Not Reportable Baso # (Auto) Not Reportable Total Counted 100 Seg Neutrophils % 74.0 H Band Neutrophils % 4.0 Lymphocytes % (Manual) 16.0 L Monocytes % (Manual) 4.0 Eosinophils % (Manual) 2.0 Neutrophils # (Manual) 5772 RBC Morphology Norm Sodium 134 L Potassium 3.3 L D Chloride 111 H Carbon Dioxide 20 L BUN 11 Creatinine 0.36 L Estimated GFR > 60 BUN/Creatinine Ratio 30.6 H Glucose 119 H Calcium 8.1 L Total Bilirubin 0.2 AST 29 ALT 27 Alkaline Phosphatase 75 Total Protein 5.1 L Albumin 2.0 L Globulin 3.1 Albumin/Globulin Ratio 0.6 L [facility] Medical History Dyslipidemia Social History household members: none Smoking Status: Never smoker alcohol intake: former Assessment & Plan Assessment & Plan narrative: 1. Gram-negative barbi Urinary tract infection Cultures are pending at this time. Blood cultures remain negative to date. Will continue ceftriaxone. Once cultures finalized, may be able to narrow therapy. She notes in the 2 weeks prior to admission, she had developed a viral illness and was laying in bed a lot, eating and drinking very little. She notes she was urinating less than normal as well. She subsequently developed the UTI symptoms right before admission. It is likely her decreased urination in conjunction with urinary retention led to her UTI. 2. Suspected neurogenic bladder She does have urinary retention and now has a Pang catheter in place. Whether this is acute onset secondary to her UTI versus chronic retention from neurogenic bladder is not entirely clear. Will need to consider a voiding trial once her infection is cleared 3. Multiple sclerosis Patient is quite weak, likely due to a combination of her chronic neurologic illness as well as her acute infection. Will have PT and OT assess and determine if she has a candidate for penitentiary facility for rehab. 4. Normocytic anemia Hemoglobin dropped from 9.2 on admission to 7.2 today. It may be hemodilutional. Will recheck labs in the morning. Consider transfusion if below 7 5. Thrombocytosis Platelet count was 554 on admission and is 517 today. May be an acute phase reactant. 6. Hypokalemia Will replete and recheck in the morning 7. Hyponatremia Sodium was 129 on admission, improved to 134 today. 8. Metabolic acidosis Chloride was 97 bicarb 20 on admission. It is improved to 111 and 20 today. Will continue to monitor Code status DNR DNI Prophylaxis On heparin Disposition Await PT and OT recommendations for possible SNF Time-Based Coding :: [TOTAL MINUTES] spent with patient and on the chart (including review of chart, obtaining history, exam, reviewing outside data, placing orders, documenting exam and treatment plan, and counseling patient) on [DATE]. Quality VTE Deep Vein Thrombosis/Pulmonary Embolism Present on Admission: No
[2025-03-17 19:00] VITALS: BP 127/60; PULSE 101; RESP 16; TEMP 36.8; O2SAT 99
[2025-03-18] MEDS: SODIUM CHLORIDE 0.9% 1,000 ML 150 ML IV ×3 (04:44→20:52)
[2025-03-18 06:10] LABS: Hematocrit 21.5 % (36-46); Hemoglobin 7.4 g/dL (12.0-16.0); Mean Corpuscular HGB Conc 34.4 % (30-36); Mean Corpuscular Hemoglobin 28.9 PG (26-34); Mean Corpuscular Volume 84.1 fL (80-100); Platelet Count 549 X10^3/uL (150-400)
[2025-03-18 06:11] LABS: Add Manual Diff / Slide Review YES
[2025-03-18 06:16] LABS: Blood Urea Nitrogen 7 mg/dL (7-17); Calcium 7.8 mg/dL (8.4-10.2); Carbon Dioxide 22 mmol/L (22-32); Chloride 108 mmol/L (98-107); Estimated Glomerular Filt Rate > 60 mL/min (>60); Glucose 112 mg/dL (70-99); HEMOLYSIS < 15 (0-50); Potassium 3.2 mmol/L (3.4-5.1); Sodium 132 mmol/L (137-145)
[2025-03-18 06:20] LABS: Atypical Lymphocytes Percent 2.0 %; Band Neutrophils Percent 5.0 % (3-7); Eosinophils Percent Manual 4.0 % (2-4); Lymphocytes Percent Manual 13.0 % (25-45); Monocytes Percent Manual 6.0 % (2-11); Neutrophils Absolute Manual 6900 /uL (3000-5900); RBC Morphology Normal Morphology; Segmented Neutrophils Percent 70.0 % (38-70); Total Cells Counted 100
[2025-03-18 07:47] LABS: HEMOLYSIS < 15 (0-50); Iron 25 ug/dL (37-170)
[2025-03-18 07:58] LABS: Percent Iron Saturation 17 % (15-50); Total Iron Binding Capacity 148 ug/dL (265-497); Transferrin < 80 mg/dL (206-381)
[2025-03-18 08:00] VITALS: BP 124/69; PULSE 94; RESP 16; TEMP 36.6; O2SAT 94
[2025-03-18 08:26] LABS: Ferritin 292 ng/mL (11-264)
[2025-03-18] MEDS: HEPARIN 5,000 UNIT/ML VIAL 5000 UNIT SUBCUT ×2 (09:02→20:52)
[2025-03-18] MEDS: FLEETS ENEMA 1 EACH PR (11:20)
[2025-03-18] MEDS: POTASSIUM CHLORIDE 20 MEQ TAB 40 MEQ PO ×2 (13:21→18:47)
--- NOTE | 2025-03-18 13:51 | PT.IIE ---
Current Diagnoses Urinary tract infection, site not specified (03/15/25) Medical History (Last Reviewed 03/15/25 @ 19:01 by Dontrell Gallardo MD) Dyslipidemia Physical Therapy Inpatient Evaluation/Re-Eval M1 PT/OT-IP Prior Functional Status Start: 03/18/25 12:00 Freq: NEEDED Status: Active Protocol: Document 03/18/25 12:01 [facility] (Rec: 03/18/25 13:16 [facility] [id number]) Medical Review Prior Functional Status Medical History Yes Reviewed Communication communication with nursing and pt's caregiver prior to PT eval Mobility and Gait pt with MS with total paralysis of right UE/LE , Left LE is very limited mobility following a virus that attacked her system 3 weeks ago. Activities of Daily has a caregiver for over 12 hours per day for all ADL's Living and IADL's Prior Functional total dependence in the last 3 weeks, prior to that pt Level (Other details was able to assist with transfers using left UE ) Social History Household Members none Living Arrangements House Number of Floors ( One Floor Floors) Additional Social Haven lives in [place] in her home alone and has History Comment a caregiver 7 days per week for 12 hours a day, she is totally dependent with ADL's with newer 3 week onset of left sided weakness A rossy lift has been obtained by the caregiver for use at home M2 PT-IP Current Condition Start: 03/18/25 12:00 Freq: NEEDED Status: Active Protocol: Document 03/18/25 12:01 [facility] (Rec: 03/18/25 13:29 [facility] [id number]) Physical Therapy Current Condition Current Condition Evaluation Date 03/18/25 Treatment Diagnosis hx of MS and viral infection x the past 3 weeks Onset Date 3 weeks ago M3 PT-IP Subjective Start: 03/18/25 12:00 Freq: NEEDED Status: Active Protocol: Document 03/18/25 12:01 [facility] (Rec: 03/18/25 13:29 [facility] [id number]) Subjective Physical Therapy Visit Type Type Initial Evaluation Visit Start Time 12:00 Visit Stop Time 12:40 Physical Therapy Visit Comments Patient Comments Haven and her managed care nurse are both present in the room and managed care nurse explains that Haven has right sided paralysis with her MS. A viral infection has caused her left side to become progressively weaker as well and she has been bed ridden x 3 weeks. Prior to the virus she was able to use her left hand to pull her up to stand to transfer to commode with assistance. Pt has not had a bowel movement yet and is on bed bunch . She agrees to PT to evaluate LE strength M4 PT-IP Mobility and Gait Start: 03/18/25 12:00 Freq: NEEDED Status: Active Protocol: Document 03/18/25 12:01 [facility] (Rec: 03/18/25 13:29 [facility] [id number]) PT-Bed Mobility Assessment Rolling Level of Assist Maximal Assistance PT-Transfer Assessment Comments Mobility Comments Max A x 2 for all bed mobility M5 PT-IP Objective Assessments Start: 03/18/25 12:00 Freq: NEEDED Status: Active Protocol: Document 03/18/25 12:01 [facility] (Rec: 03/18/25 13:29 [facility] [id number]) Orientation Orientation/Cognition Level of Alertness Alert Orientation Name,Age,Birthday,Place,Situation Language Function No Deficits Noted Ability Safety Awareness Understands Safety Issues Memory Description No Deficits Noted Gross Range of Motion Upper Extremity ROM Assessment Within Functional Limits Lower Extremity ROM Assessment Bilaterally Impaired Impairments complete paralysis of right UE/LE and left sided impairment following virus AROM of ankle PF and quad squeeze Strength Upper Extremity Strength Assessment Right Impaired Lower Extremity Strength Assessment Bilaterally Impaired Comments Strength Comments pt able to actively PF left foot in small ROM, able to activate quad and assist with hip abduction on the left No active movement right side Sensation Assessment Sensation Gross Sensation WNL Light Touch Intact M6 PT-IP Treatment Start: 03/18/25 12:00 Freq: NEEDED Status: Active Protocol: Document 03/18/25 12:01 [facility] (Rec: 03/18/25 13:42 [facility] [id number]) Physical Therapy Treatment Other Treatments Other Treatment PROM for the right LE, ankle DF/PF, knee flexion, hip Performed flexion and abduction AAROM left LE as pt was able to assist with hip abduction, leg extension, PF PROM for DF and knee flexion on the left M7 PT-IP Assessment and Plan Start: 03/18/25 12:00 Freq: NEEDED Status: Active Protocol: Document 03/18/25 12:01 [facility] (Rec: 03/18/25 13:42 [facility] [id number]) PT Summary Assessment and Plan Potential Rehabilitation Fair Potential Status of Condition Evolving at Evaluation Summary Impairments ROM,Strength,Bed Mobility,Transfers,Gait,Activity Tolerance Assessment Summary Palmira is a 64 year old female with MS who lives alone but has care takers 12 hours day in her home. She has no functional use of her Right side of her body with her MS. She has had a virus this past 3 weeks which has created left sided paralysis as well. She had been given stool softeners and was on a bed bunch when PT was initiated. She is Max A for bed mobility. PROM was performed on the right LE as well as edema reduction massage. Left LE AAROM was performed for hip abduction, and PF. Pt is able to perform a quad squeeze on left. PROM for ankle DF, Knee and hip flexion. Edema reduction massage performed. Her managed care nurse Loren was in the room for PT eval. Pt would like to return home with care givers upon discharge and would benefit from 24/ care. She would benefit from PT while in the hospital for bed mobility and ROM. Goals Bed Mobility Goal Moderate Assistance Transfer Goal Maximal Assistance Days to Meet Goals 10 Frequency of Treatment Frequency Of Once a Day Treatment Treatment Plan Physical Therapy Bed Mobility Training,Transfer Training,Therapeutic Treatment Plan Exercise Other pt does have a mechanical lift for home that was just Recommendations and obtained last week Next Treatment Focus Weight Bearing Status Weight Bearing Full Weight Bearing Status Recommendations To Nursing Amount of Assist Total Assistance,Mechanical Lift Needed Discharge Recommendations PT Discharge Home with 24/7 Assist Available Recommendations Transportation Needs Stretcher/Ambulance at Discharge
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
--- NOTE | 2025-03-18 15:47 | PM.PN.1 ---
Subjective Subjective Interval history: 64-year-old female with underlying multiple sclerosis admitted with UTI and urinary retention concerning for possible neurogenic bladder. She reports she has not had a bowel movement in 4 days now. She requested an enema earlier today but did not have any stool past. As a result of her constipation, she states she has been unable to eat. She denies nausea. She continues to feel she would be unsuccessful in the home environment. PT arrived during my visit with the plan for an assessment. Exam Vital Signs (past 8 hours): - 03/18/25 08:00 Temperature 97.9 F Pulse Rate 94 H Respiratory Rate 16 Blood Pressure 124/69 Pulse Oximetry 94 Oxygen Flow Rate 0 Oxygen Delivery Method Room Air Oxygen Flow Rate 0 Narrative Exam Narrative: GEN: Middle-aged female, pleasant, chronically ill-appearing Alert and oriented x 3, NAD HEENT:NC, Face symmetric CHEST: Respiratory excursions symmetric, CTAB CV: RRR, no M/R/G ABD: Soft, NT/ND, BT present in all 4 quadrants, no organomegaly or masses EXTR: warm, well perfused, no C/C/E SKIN: warm and dry, no rash NEURO: Alert and oriented x 3 Objective Labs 03/18/25 05:46 03/18/25 05:46 Labs: Laboratory Results - last 24 hr 03/18/25 05:46 WBC 9.2 RBC 2.56 L Hgb 7.4 L Hct 21.5 L MCV 84.1 MCH 28.9 MCHC 34.4 RDW 14.0 Plt Count 549 H Neut % (Auto) Not Reportable Lymph % (Auto) Not Reportable [place] % (Auto) Not Reportable Eos % (Auto) Not Reportable Baso % (Auto) Not Reportable Lymph # (Auto) Not Reportable [place] # (Auto) Not Reportable Baso # (Auto) Not Reportable Total Counted 100 Seg Neutrophils % 70.0 Band Neutrophils % 5.0 Lymphocytes % (Manual) 13.0 L Atypical Lymphs % 2.0 H Monocytes % (Manual) 6.0 Eosinophils % (Manual) 4.0 Neutrophils # (Manual) 6900 H RBC Morphology Normal morphology Sodium 132 L Potassium 3.2 L Chloride 108 H Carbon Dioxide 22 BUN 7 Creatinine 0.37 L Estimated GFR > 60 BUN/Creatinine Ratio 18.9 Glucose 112 H Calcium 7.8 L Iron 25 L TIBC 148 L % Saturation 17 Transferrin < 80 L Ferritin 292 H [facility] Medical History Dyslipidemia Social History household members: none Smoking Status: Never smoker alcohol intake: former Assessment & Plan Assessment & Plan narrative: 1. Gram-negative barbi Urinary tract infection Cultures revealed [id number] colonies of E coli and alpha hemolytic strep species [phone] colonies. The E coli is pansensitive with the exception of being resistant to Zosyn. Blood cultures remain negative times 72 hours. She has received 4 doses of IV ceftriaxone. Given the likelihood of neurogenic bladder, she would likely benefit from a total duration of therapy of 7 days. 2. Suspected neurogenic bladder She does have urinary retention and now has a Pang catheter in place. Whether this is acute onset secondary to her UTI versus chronic retention from neurogenic bladder is not entirely clear. Will need to consider a voiding trial once her infection is cleared 3. Multiple sclerosis Patient remained quite weak, likely due to a combination of her chronic neurologic illness as well as her acute infection. Await determination from PT and OT assessments to determine if she has a candidate for longterm facility for rehab. 4. Normocytic anemia Hemoglobin remained stable at 7.4 today. 5. Thrombocytosis Platelet count was 554 on admission and remains 549 today. 6. Hypokalemia 3.2 today. Continue to replete. 7. Hyponatremia Remains mildly hyponatremic at 132 day. 8. Metabolic acidosis Resolving Code status DNR DNI Prophylaxis On heparin Disposition Await PT and OT recommendations for possible SNF Time-Based Coding :: [TOTAL MINUTES] spent with patient and on the chart (including review of chart, obtaining history, exam, reviewing outside data, placing orders, documenting exam and treatment plan, and counseling patient) on [DATE]. Quality VTE Deep Vein Thrombosis/Pulmonary Embolism Present on Admission: No
[2025-03-18 19:00] VITALS: BP 121/74; PULSE 96; RESP 18; TEMP 37.2; O2SAT 97
[2025-03-19] MEDS: SODIUM CHLORIDE 0.9% 1,000 ML 150 ML IV (03:08)
[2025-03-19 05:57] LABS: Hematocrit 21.0 % (36-46); Hemoglobin 7.1 g/dL (12.0-16.0); Mean Corpuscular HGB Conc 33.8 % (30-36); Mean Corpuscular Hemoglobin 28.6 PG (26-34); Mean Corpuscular Volume 84.5 fL (80-100); Platelet Count 509 X10^3/uL (150-400)
[2025-03-19 05:59] LABS: Add Manual Diff / Slide Review YES
[2025-03-19 06:09] LABS: Blood Urea Nitrogen 7 mg/dL (7-17); Calcium 8.1 mg/dL (8.4-10.2); Carbon Dioxide 25 mmol/L (22-32); Chloride 108 mmol/L (98-107); Estimated Glomerular Filt Rate > 60 mL/min (>60); Glucose 106 mg/dL (70-99); HEMOLYSIS < 15 (0-50); Potassium 4.2 mmol/L (3.4-5.1); Sodium 133 mmol/L (137-145)
[2025-03-19 06:12] LABS: Band Neutrophils Percent 1.0 % (3-7); Basophils Percent Manual 2.0 % (0-1); Eosinophils Percent Manual 2.0 % (2-4); Lymphocytes Percent Manual 22.0 % (25-45); Monocytes Percent Manual 3.0 % (2-11); Neutrophils Absolute Manual 6035 /uL (3000-5900); RBC Morphology Normal Morphology; Segmented Neutrophils Percent 70.0 % (38-70); Total Cells Counted 100
--- NOTE | 2025-03-19 06:52 | PC.NURSE ---
Right hand has become swollen 2+ edema. patient had a ring on middle finger that was unable to be removed. Zuleyka RN from ED and this RN removed ring with a ring cutter, ring placed in specimen cup with patient label within visual field of patient. Fluids stopped and made aware.
[2025-03-19 07:00] VITALS: BP 128/72; PULSE 99; RESP 16; TEMP 37.4; O2SAT 96
--- NOTE | 2025-03-19 07:36 | DI.US.S_ITS ---
PROCEDURE: US PERIPH VENOUS UP EXTREM RT INDICATIONS: EDEMA TECHNIQUE: Real-time imaging, as well as color and pulse Doppler interrogation, was performed of the upper extremity deep veins from the inferior neck to the antecubital fossa. COMPARISON: None. FINDINGS: The internal jugular vein, visualized portions of the subclavian vein, axillary, and brachial veins are free of intraluminal thrombus. Where physically possible, the veins are normally compressible. Color and pulse Doppler demonstrate normal intraluminal flow, with expected phasicity and pulsatility. Additional scanning of the cephalic and basilic veins of the superficial system demonstrates normal compressibility, without thrombus. IMPRESSION: No findings of upper extremity deep venous thrombosis can be seen. Dictated by: Terence Snowden M.D. on 03/19/2025 at 9:30 Approved by: Terence Snowden M.D. on 03/19/2025 at 9:30
--- NOTE | 2025-03-19 07:43 | P.PN_ITS ---
Subjective Subjective Interval history: Hospital course: Admitted with UTI, weakness, and urine retention in context of MS. S: Left arm edema. New. Otherwise, she was doing well. She denies any arm pain. Her urine is better and she failed stronger. Physical therapy felt she would require nursing facility versus inpatient rehab stay. O: NAD, alert and oriented. Fluent speech. Lungs are clear, normal rate and effort. Heart is regular, no murmur gallop or rub. Abdomen is soft, non distended. Extremities are free of edema. A/P: 1. Urinary tract infection, improving. 2. Urine retention, active. 3. Hypovolemic hyponatremia, improved. 4. MS, with recent worsening of symptoms secondary infection. PLAN: -IV antibiotics -follow cultures -Pang for urine retention. She is DNR, confirmed with her @ admission. Anticipate 2 midnights in the hospital, supports inpatient status. Exam Vital Signs (past 8 hours): Oxygen Delivery Method Room Air Oxygen Flow Rate 0 Objective Labs 03/19/25 05:37 03/19/25 05:37 Labs: Laboratory Results - last 24 hr 03/18/25 03/19/25 05:46 05:37 WBC 8.5 RBC 2.49 L Hgb 7.1 L Hct 21.0 L MCV 84.5 MCH 28.6 MCHC 33.8 RDW 13.8 Plt Count 509 H Neut % (Auto) Not Reportable Lymph % (Auto) Not Reportable [place] % (Auto) Not Reportable Eos % (Auto) Not Reportable Baso % (Auto) Not Reportable Lymph # (Auto) Not Reportable [place] # (Auto) Not Reportable Baso # (Auto) Not Reportable Total Counted 100 Seg Neutrophils % 70.0 Band Neutrophils % 1.0 L Lymphocytes % (Manual) 22.0 L Monocytes % (Manual) 3.0 Eosinophils % (Manual) 2.0 Basophils % (Manual) 2.0 H Neutrophils # (Manual) 6035 H RBC Morphology Normal morphology Sodium 133 L Potassium 4.2 Chloride 108 H Carbon Dioxide 25 BUN 7 Creatinine 0.36 L Estimated GFR > 60 BUN/Creatinine Ratio 19.4 Glucose 106 H Calcium 8.1 L Iron 25 L TIBC 148 L % Saturation 17 Transferrin < 80 L Ferritin 292 H [facility] Medical History Dyslipidemia Social History household members: none Smoking Status: Never smoker alcohol intake: former Assessment & Plan Time-Based Coding :: [TOTAL MINUTES] spent with patient and on the chart (including review of chart, obtaining history, exam, reviewing outside data, placing orders, documenting exam and treatment plan, and counseling patient) on [DATE]. Quality VTE Deep Vein Thrombosis/Pulmonary Embolism Present on Admission: No
--- NOTE | 2025-03-19 10:19 | PT.IPTN ---
Current Diagnoses Urinary tract infection, site not specified (03/15/25) Physical Therapy Treatment Note M2 PT-IP Current Condition Start: 03/18/25 12:00 Freq: NEEDED Status: Active Protocol: Document 03/19/25 09:52 SP (Rec: 03/19/25 10:49 SP [id number]) Physical Therapy Current Condition Current Condition Evaluation Date 03/18/25 Treatment Diagnosis hx of MS and viral infection x the past 3 weeks Onset Date 3 weeks ago M3 PT-IP Subjective Start: 03/18/25 12:00 Freq: NEEDED Status: Active Protocol: Document 03/19/25 09:52 SP (Rec: 03/19/25 10:49 SP [id number]) Subjective Physical Therapy Visit Type Type Treatment Note Visit Start Time :52 Visit Stop Time 10:19 Notes Vitals taken, see OT documentation. OT provided 2nd person total assist needed during tx. Number of ASPHALT SMOOTHER Visits 1 Physical Therapy Visit Comments Patient Comments Pt agreeable to working with ASPHALT SMOOTHER. Patient Goals Pt verbalized wants to get stronger with rehab to get back to transferrig with just her 1 caregiver. M4 PT-IP Mobility and Gait Start: 03/18/25 12:00 Freq: NEEDED Status: Active Protocol: Document 03/19/25 09:52 SP (Rec: 03/19/25 10:49 SP [id number]) PT-Bed Mobility Assessment Rolling Type of Rolling Log Rolling,Bilateral Level of Assist Maximal Assistance,2 Person Assistance Supine to Sit Supine to Sit Total Assistance,2 Person Assistance,Head of Bed Elevated,Bedrails Sit to Supine Sit to Supine Total Assistance,2 Person Assistance Scooting Scooting to Edge of Maximum Assistance,Dependent Bed Scooting Up and Down Dependent in Bed PT-Transfer Assessment Transfers Transfer Destination Bed Transfer Technique Lateral Scoot Transfer Ability Level of Assist Maximum Assistance,Total Assistance,2 Person Assistance ,Use of Upper Extremities Comments Mobility Comments Pt required Max to total A x2 with cues for LUE use of bed rail. JANELLE BERG, PROM RLE instruction ther ex, able to push against resistance into L>R knee extension bilaterally but needs assist into flexion. Total-Max A x2 to EOB with support for trunk control, cues for LUE on bed rail self support. Pt c/o dizziness in sitting, states little lower than her normal, agreed to lateral scoot up EOB Total- Max A x2 via transfer pad, then sit >supine total/Max A x2. Pt incline adjusted in bed, supported with pillows under BLEs, under R full UE and under upper arm on L to comfort. Pt had call light and all needs in reach before left. Spoke to pt, OT and Dr Gallardo, recommending acute rehab with pt very motivated and tolerated tx today, feel she can benefit from 3hrs rehab to help her strength to return PLOF support of 1 person. PT-Balance Assessment Sitting Balance and Reactions Static Sitting Poor Balance Ability Dynamic Sitting Poor Balance Ability M5 PT-IP Objective Assessments Start: 03/18/25 12:00 Freq: NEEDED Status: Active Protocol: Document 03/18/25 12:01 [facility] (Rec: 03/18/25 13:29 [facility] [id number]) Orientation Orientation/Cognition Level of Alertness Alert Orientation Name,Age,Birthday,Place,Situation Language Function No Deficits Noted Ability Safety Awareness Understands Safety Issues Memory Description No Deficits Noted Gross Range of Motion Upper Extremity ROM Assessment Within Functional Limits Lower Extremity ROM Assessment Bilaterally Impaired Impairments complete paralysis of right UE/LE and left sided impairment following virus AROM of ankle PF and quad squeeze Strength Upper Extremity Strength Assessment Right Impaired Lower Extremity Strength Assessment Bilaterally Impaired Comments Strength Comments pt able to actively PF left foot in small ROM, able to activate quad and assist with hip abduction on the left No active movement right side Sensation Assessment Sensation Gross Sensation WNL Light Touch Intact M6 PT-IP Treatment Start: 03/18/25 12:00 Freq: NEEDED Status: Active Protocol: Document 03/19/25 09:52 SP (Rec: 03/19/25 10:49 SP [id number]) Physical Therapy Treatment Other Treatments Other Treatment PROM for the right LE, ankle DF/PF, knee flexion, hip Performed flexion and abduction AAROM left LE as pt was able to assist with hip abduction, leg extension, PF PROM for DF and knee flexion on the left M7 PT-IP Assessment and Plan Start: 03/18/25 12:00 Freq: NEEDED Status: Active Protocol: Document 03/19/25 09:52 SP (Rec: 03/19/25 10:49 SP [id number]) PT Summary Assessment and Plan Potential Rehabilitation Fair Potential Status of Condition Evolving at Evaluation Summary Impairments ROM,Strength,Bed Mobility,Transfers,Gait,Activity Tolerance Assessment Summary Palmira is a 64 year old female with MS who lives alone but has care takers 12 hours day in her home, she is very motivated to get stronger and back to PLOF completing transfers with 1 caregiver. She currently requires Total to Max A x2 for all bed and sitting balance mobility, not at her baseline. Spoke to pt, OT and Dr Gallardo, recommending acute rehab with pt very motivated and tolerated tx today, feel she can benefit from 3hrs rehab to help her strength to return PLOF support of 1 person. Goals Bed Mobility Goal Moderate Assistance Transfer Goal Maximal Assistance Days to Meet Goals 10 Frequency of Treatment Frequency Of Once a Day Treatment Treatment Plan Physical Therapy Bed Mobility Training,Transfer Training,Therapeutic Treatment Plan Exercise Other pt does have a mechanical lift for home that was just Recommendations and obtained last week Next Treatment Focus Weight Bearing Status Weight Bearing Full Weight Bearing Status Recommendations To Nursing Amount of Assist Mechanical Lift Needed Discharge Recommendations PT Discharge SNF Rehab,Acute Rehab,SNF vs Acute Rehab Recommendations Transportation Needs Stretcher/Ambulance at Discharge
[2025-03-19] MEDS: HEPARIN 5,000 UNIT/ML VIAL 5000 UNIT SUBCUT ×2 (10:46→20:14)
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
--- NOTE | 2025-03-19 12:14 | DIET.CONS ---
Dietary Consultation Note Admission Date: 03/15/2025 18:11 Assessment: 64 y F admitted for UTI. Dietitian screened for MNA. PMH of MS Met with pt and caregiver at bedside. Reports 11 days before hospitalization just doing liquids (bone broth, lyte beverages, etc) d/t weakness and decreased appetite. Normally has 2 meals daily. Appetite has return and pt reports eating her normal 2 meals here. DFM reviewed for meal composition. Reports last BM yesterday. Unsure of UBW, hasn't noted any weight loss, rather feels like she had some fluid retention before hospitalization Ht: 177.8 cm Wt: 65.5 kg BMI: 20.7 UBW: 63.5 kg on 12/13/24 Last BM: 03/15/25 (03/15/25 18:46) MNA: 9 Davonte Score: 11 Diet: 03/16/25 Breakfast General (Regular) Diet Diet Modifications: Nutrition Percent Meal Consumed 25% 03/18/25 18:59 Percent Meal Consumed 50% 03/17/25 18:00 Labs: RBC 2.49 X10^6/uL (4.0-5.2) L 03/19/25 05:37 Hgb 7.1 g/dL (12.0-16.0) L 03/19/25 05:37 Hct 21.0 % (36-46) L 03/19/25 05:37 Creatinine 0.36 mg/dL (0.52-1.04) L 03/19/25 05:37 Lactate 1.3 mmol/L (0.7-2.1) 03/15/25 14:25 Iron 25 ug/dL (37-170) L 03/18/25 05:46 % Saturation 17 % (15-50) 03/18/25 05:46 Ferritin 292 ng/mL (11-264) H 03/18/25 05:46 Nutrition Diagnosis: Inadequate oral intakes r/t decreased appetite and weakness aeb pt reports 11 days no solid food Interventions: Encouraged adequate po intakes and reviewed good protein sources Monitoring/Evaluations: po intakes Electronically Signed by: Aislinn Hall 03/19/25 12:14 Clinical Dietitian [address] [address]
--- NOTE | 2025-03-19 14:15 | CM.DPC ---
DCP SNF Planning Cont: Per MD, pt making progress and continues to recommend SNF at d/c and remains on IV abx and cultures pending. Possible discharge to SNF tomorrow . SW sent PT/OT eval note and updated clinicals to [facility] and spoke to admissions Nicki and she confirms they can accept and submitted for auth and obtained auth in the afternoon today. Per FLAT GRINDER OPERATOR today, feel pt could benefit from Acute Rehab and pt would be agreeable. SW made initial referral [place] [facility] to just review to determine if pt would meet criteria. Currently PT/OT eval recommend SNF and FLAT GRINDER OPERATOR note Acute and unsure pt could tolerate 3 hrs therapy a day at this time. Would be willing to consider further if both PT/OT and maybe ST recommend Acute. SW met bedside with pt and support person bedside and explained role and they confirm that [employer] Assistant and [facility] Security met bedside with her and explained process for a type of restraining order against her SO Will to keep him from repairing and damaging her house further and to keep him from having contact with her. Pt completed the initial paperwork and her CG Loren is taking the document to the [place] today for the gravel inspector's approval. Utility Worker Production confirmed pt's approved list of visitors and the code needed when calling to get information. SW updated pt and friend on the acceptance at [facility] and the potential barriers to Acute Rehab (not a strong discharge plan from Acute rehab, would need insurance approval, and ability to participate in 3 hrs rehab) and that Acute Rehab tends to be a much shorter admission than SNF. Pt and friend in agreement that preference at this time is [facility] for slower paced SNF rehab and ability to be in a facility for more time to ensure pt's home situation improved without her Sig Other Will involved anymore and court process included. PASRR done in anticipation of SNF. Plan: SW to follow closely for plan of discharge to [facility] tomorrow if medically stable and awaiting confirmation of time for transport. SEGUN Rollins
--- NOTE | 2025-03-19 18:15 | PC.NURSE ---
Patient states that she is feeling better today. R.arm was swollen this morning, iv was wnl and not infiltrated. IV antiobitic went in smootly. She has been heplocked. Patients caregiver, and x visited today. Her xbf is not allowed in the hospital, and she does not want him calling here or coming by to visit. We are aware and security is also aware. Patient is pleasant and denies pain this shift. She is resting comfortably, Haven got a bedbath today, and has been repositioned every couple of hours. She has MS so her legs are flaccid and she is not able to walk. Her r.arm is also flaccid and patient is not able to use much. She can use her left arm. Resting comfortably.
[2025-03-19 19:00] VITALS: BP 125/68; PULSE 101; RESP 18; TEMP 37.3; O2SAT 99
--- NOTE | 2025-03-20 08:47 | CM.DPC ---
DCP Cont. Reviewed EMR and team rounds for pt's medical status and updates. Pt has been cleared for discharge today to [facility]. BLS will transport her at 11:00am. Provided RN report number to nurse, and updated pt. Will fax d/c clinicals once available. No further CM d/c needs are identified at this time.
--- NOTE | 2025-03-20 09:16 | P.DS_ITS ---
History of Present Illness History of Present Illness Chief complaint: feels sick, sludgy urine Narrative: Patient was a 64-year-old female with MS. She lives at home with caregivers during the day. She has been ill for about 3 weeks with what she saw thought was a virus. She was had foul-smelling urine for the past several days and progressive weakness over 3 weeks. She was usually able to be assisted in transferring in during the day and he was typically unattended overnight. She has caregivers for over 12 hours a day. She was had no fevers, or chills. She does have myalgias and generalized weakness. She denies a headache. Her difficulty speaking. There was no specific focal weakness that she can detect. A CT scan in the ED was unremarkable. However her abdomen was distended and a in and out catheter yielded over 1000 mL of urine which was foul smelling and purulent. She was no history of known urine retention but it sounds as though this may have been progressive over the past several weeks. She also denies urinary tract infection. Discharge Providers Provider Date of admission: 03/15/25 18:11 Discharge Date: 03/20/25 Primary care physician: TL Menjivar Consults: 03/17/25 14:46 Consult to Physical Therapy Evaluate & Treat Comment: Physician Instructions: Evaluate and Treat 03/17/25 14:47 Consult to Occupational Therapy Evaluate & Treat Comment: Physician Instructions: Evaluate and treat Discharge provider: Dontrell Gallardo MD Summary Hospital Course Discharge Diagnosis: 1. Urinary tract infection, improving. 2. Urine retention, active. 3. Hypovolemic hyponatremia, improved. 4. MS, with recent worsening of symptoms secondary infection. 5. Probable neurogenic bladder secondary to MS. Hospital Course: She was admitted with volume depletion, hyponatremia, urinary tract cruz, it she it was unclear for urine retention is chronic from her multiple sclerosis. This is felt to be likely. A Pang catheter was placed with over a L of output. The catheter was day so she can be further evaluated. She was treated with ceftriaxone and did grow out E coli and Streptococcus alpha hemolyticus. She will be discharged on cephalexin for an additional 5 days given her probable neurogenic bladder for a total course of 10 days. She will go to the [facility] facility for rehabilitative efforts based on the input of physical and occupational therapy. Status at Discharge Cognitive/behavioral status at discharge: oriented Functional status at discharge: wheelchair bound Overall status at discharge: patient is progressing back to baseline Time Spent with Patient Time spent: Greater than 30 minutes Exam Vital Signs (past 8 hours): Oxygen Delivery Method Room Air Oxygen Flow Rate 0 Narrative Exam Narrative: NAD, alert and oriented. Fluent speech. Lungs are clear, normal rate and effort. Heart is regular, no murmur gallop or rub. Abdomen is soft, non distended. Extremities are free of edema. Objective Imaging Multiple studies:: Radiologist's impression: Head and neck CTA: No significant intracranial arterial abnormality is seen. No significant abnormality is seen within the arteries of the neck. If there is persistent or high clinical suspicion for acute cerebrovascular ischemia/stroke, more sensitive evaluation with brain MRI can be considered. Head CT: 1. CT head without acute intracranial abnormalities or acute calvarial fractures. 2. Age-related senescent changes and sequela of chronic small vessel ischemic disease. If there is persistent or high clinical suspicion for acute cerebrovascular ischemia/stroke, more sensitive evaluation with brain MRI can be considered. Chest x-ray: No acute pulmonary process. Labs 03/19/25 05:37 03/19/25 05:37 [facility] Medical History Dyslipidemia Social History household members: none Smoking Status: Never smoker alcohol intake: former Discharge Assessment & Plan Assessment and Plan Assessment: 1. Urinary tract infection, improving. 2. Urine retention, active. Plan of Treatment: Discharge to nursing facility for rehabilitative efforts and to complete 5 additional days of cephalexin 500 q.i.d.. Pang catheter in place, suspect neurogenic bladder. Could attempt a voiding trial after infection is treated. Otherwise would consider referral to Urology. Discharge Plan Discharge Plan Patient Disposition: SNF Transfer to: [facility] Under care of provider: Dr. Noonan Provider Discharge Comment: Stable for discharge to rehabilitation facility. Discharge orders & Medications Prescriptions: New cephalexin 500 mg capsule 500 mg PO QID Qty: 20 0RF Continued (DME) Incontinence Supplies See Rx Instructions .Route .MEDSUPPLY Qty: 1 0RF Rx Instructions: As directed (DME) transfer disk See Rx Instructions .Route .MEDSUPPLY Qty: 1 0RF Rx Instructions: As directed (DME) transfer disk See Rx Instructions .Route .MEDSUPPLY Qty: 1 0RF Rx Instructions: As directed (DME) Shower chair See Rx Instructions .Route .MEDSUPPLY Qty: 1 0RF Rx Instructions: As directed (DME) NANCY Donahue Sit to Stand patient transfer Aid See Rx Instructions .Route .MEDSUPPLY Qty: 1 0RF Rx Instructions: As directed ascorbic acid (vitamin C) 500 mg capsule 500 mg PO DAILY vitamin B complex [B Complex-Vitamin B12] tablet 1 tab PO DAILY ginkgo biloba 40 mg tablet 40 mg PO DAILY (DME) disabled parking See Rx Instructions .ROUTE .MEDSUPPLY Qty: 1 0RF Rx Instructions: I find this patient to be medically disabled and qualified for Disabled Parking as indicated, and signed, on the Accompanying Disabled Parking Application for individuals. mecobalamin (vitamin B12) 1,000 mcg tablet,disintegrating 1,000 mcg sublingual DAILY Rx Instructions: place tablet under tongue and allow to dissolve for at least30 secs before swallowing Medication counseling provided by Pharmacist: No Follow up/Referrals: Curtis Choe ARNP [Primary Care Provider, Medical] Discharge Health Status Multidrug resistant organism: No MDRO Diet/Activity/Treatments Diet: Regular Activity: Per PT Skin/Wound/Dressing Care Report to your healthcare provider any signs of infection, such as:: chills, fever Special Rehabilitation Services Reason for rehabilitation: Recovery r/t decondition Rehab type: Physical therapy and Occupational therapy Visit Report/Discharge Packet Instructions: DI for Urinary Tract Infection (UTI) Stand Alone Forms: Patient Portal/API Discharge Data Primary Care Provider: Curtis Choe Quality VTE Deep Vein Thrombosis/Pulmonary Embolism Present on Admission: No
[2025-03-20] MEDS: HEPARIN 5,000 UNIT/ML VIAL 5000 UNIT SUBCUT (09:30)
[2025-03-20] MEDS: FLEETS ENEMA 1 EACH PR (10:10)
--- NOTE | 2025-03-20 10:16 | PT-IP ANOTE ---
ELECTRICIAN'S ASSISTANT attempted to see pt this am 10am, pt declined requested enema at that time knowing transportation due to arrive at 11am to go to [facility]. Pt reports is motivated to work with all therapies at SNF to improve mobility to get back to 1 person assist with her caregiver.
[2025-03-20 10:45] VITALS: BP 114/66; PULSE 100; RESP 16; TEMP 36.9; O2SAT 96
--- NOTE | 2025-03-20 11:47 | PC.NURSE ---
Patient A&OX4, VSS, afebrile on RA. Kent in place. She denies pain. Per request she is given an enema with moderate stool result. Cleared patient for discharge to [facility] today. [facility] arranged transport via EMS at 11 a.m. Patient and caregiver Loren agreeable with plan. Report given to June at [facility]. Patient transported via [facility] with EMS at 11:15 a.m.
== END 2025-03-20 11:15 | DRG 690 ==
LOC: ED 13:40 → AC 18:15
PROVIDERS: Family Medicine; Admitting Provider Hospitalist; Emergency Provider Emergency Medicine; PCP Registered Nurse Diabetes Educator; Referring Provider Emergency Medicine; Visit Provider Hospitalist
DX: N39.0 Urinary tract infection, site not specified (principal); E87.1 Hypo-osmolality and hyponatremia; E87.20 Acidosis, unspecified; G35.D Multiple sclerosis, unspecified; D64.9 Anemia, unspecified; D75.839 Thrombocytosis, unspecified; E87.6 Hypokalemia; B96.20 Unspecified Escherichia coli [E. coli] as the cause of diseases classified elsewhere; N31.9 Neuromuscular dysfunction of bladder, unspecified; E86.9 Volume depletion, unspecified; Z66 Do not resuscitate
CPT/HCPCS: 36415; 70450; 70496; 70498; 71045; 80048; 80053; 81001; 82728; 83540; 83550; 83605; 83690; 84145; 85007; 85025; 85610; 85730; 87040; 87077; 87086; 87186; 93005; 93971; 96361; 96365; 97140; 97162; 97167; 97530; 99284; J0696; J1644; J7030; J7050